=== PATIENT | male | born 1965 | race Caucasian/White ===

== ENCOUNTER 2023-02-23 15:22 | Inpatient (IN) | payer OTHER ==
[2023-02-23 16:59] VITALS: BMI 25.0
[2023-02-23] MEDS ORDERED: POLYETHYLENE GLYCOL (HEALTHYLAX) 3350 17 GM PACKET PO PRN (18:04)
[2023-02-23] MEDS ORDERED: ACETAMINOPHEN 325 MG TABLET (FP) PO PRN (18:04)
[2023-02-23] MEDS ORDERED: LOPERAMIDE HCL 2 MG CAPSULE PO PRN (18:04)
[2023-02-23] MEDS ORDERED: IBUPROFEN 600 MG TABLET (FP) PO PRN (18:04)
[2023-02-23] MEDS ORDERED: hydrOXYzine PAMOATE 25 MG CAPSULE (FP) PO PRN (18:04)
[2023-02-23] MEDS ORDERED: MAGNESIUM HYDROX 2400MG/30ML ORAL SUSPENSION 30 ML CUP PO PRN (18:04)
[2023-02-23] MEDS ORDERED: IBUPROFEN 400 MG TABLET (FP) PO PRN (18:04)
[2023-02-23] MEDS ORDERED: BENZOCAINE/MENTHOL (CHLORASEPTIC ) LOZENGE MM PRN (18:04)
[2023-02-23] MEDS ORDERED: guaiFENesin 600 MG TABLET.ER (FP) PO PRN (18:04)
[2023-02-23] MEDS ORDERED: BENZONATATE 200 MG CAPSULE PO PRN (18:04)
[2023-02-23] MEDS ORDERED: TUBERCULIN PPD 5 TU/0.1ML SYRINGE (IN PATIENT USE ONLY) ID ONE (20:15)
[2023-02-23] MEDS: MELATONIN 5 MG TABLETS PO SCH (21:49)
[2023-02-23] MEDS: THIAMINE HCL 100 MG TABLET (FP) PO SCH (21:49)
[2023-02-23] MEDS ORDERED: TUBERCULIN PPD 5 TU/0.1ML VIAL ID ONE (21:51)
[2023-02-23] MEDS: LIDOCAINE PATCH REMOVAL MC SCH (21:52)
[2023-02-24] MEDS: PRENATAL VITAMINS W/ FOLIC ACID TABLET (FP) PO SCH (10:23)
[2023-02-24] MEDS: LIDOCAINE 5% TOPICAL PATCH TP SCH (10:23)
[2023-02-24] MEDS: MELATONIN 5 MG TABLETS PO SCH (22:06)
[2023-02-24] MEDS: THIAMINE HCL 100 MG TABLET (FP) PO SCH (22:06)
[2023-02-24] MEDS: ARIPiprazole 10 MG TABLET PO SCH (22:06)
[2023-02-24] MEDS: LIDOCAINE PATCH REMOVAL MC SCH (22:07)
[2023-02-25] MEDS: LIDOCAINE 5% TOPICAL PATCH TP SCH (10:48)
[2023-02-25] MEDS: PRENATAL VITAMINS W/ FOLIC ACID TABLET (FP) PO SCH (10:48)
[2023-02-25 12:23] LABS: HEMATOCRIT 39.5 % (35.4-49); HEMOGLOBIN 13.2 GM/dL (11.7-16.9); MCH 29.8 pg (25.7-33.7); MCHC 33.5 g/dl (32.0-35.9); MEAN CELL VOLUME 89.2 fl (80-96); MEAN PLT VOLUME 9.2 fl (7.5-11.1); PLATELET COUNT 208 10^3/uL (134-434); RBC 4.43 M/mm3 (4.00-5.60); RDW 13.4 % (11.9-15.9); WHITE BLOOD COUNT 5.7 K/mm3 (4.0-10.0)
[2023-02-25 12:32] LABS: CALCIUM 8.8 mg/dL (8.5-10.1)
[2023-02-25 12:33] LABS: BLOOD UREA NITROGEN 12.4 mg/dL (7-18)
[2023-02-25 12:35] LABS: CREATININE 0.9 mg/dL (0.55-1.3)
[2023-02-25 12:37] LABS: BILIRUBIN,TOTAL 0.3 mg/dL (0.2-1); TOT PROT 6.2 g/dl (6.4-8.2)
[2023-02-25] MEDS: ARIPiprazole 10 MG TABLET PO SCH (22:06)
[2023-02-25] MEDS: MELATONIN 5 MG TABLETS PO SCH (22:06)
[2023-02-25] MEDS: THIAMINE HCL 100 MG TABLET (FP) PO SCH (22:06)
[2023-02-25] MEDS: LIDOCAINE PATCH REMOVAL MC SCH (22:06)
[2023-02-26] MEDS: PRENATAL VITAMINS W/ FOLIC ACID TABLET (FP) PO SCH (09:48)
[2023-02-26] MEDS: LIDOCAINE 5% TOPICAL PATCH TP SCH (09:48)
[2023-02-26] MEDS: ARIPiprazole 10 MG TABLET PO SCH (21:11)
[2023-02-26] MEDS: THIAMINE HCL 100 MG TABLET (FP) PO SCH (21:11)
[2023-02-26] MEDS: MELATONIN 5 MG TABLETS PO SCH (21:12)
[2023-02-26] MEDS: LIDOCAINE PATCH REMOVAL MC SCH (21:12)
[2023-02-27] MEDS: PRENATAL VITAMINS W/ FOLIC ACID TABLET (FP) PO SCH (10:15)
[2023-02-27] MEDS: LIDOCAINE 5% TOPICAL PATCH TP SCH (10:15)
[2023-02-27] MEDS: THIAMINE HCL 100 MG TABLET (FP) PO SCH (21:36)
[2023-02-27] MEDS: ARIPiprazole 10 MG TABLET PO SCH (21:36)
[2023-02-27] MEDS: MELATONIN 5 MG TABLETS PO SCH (21:37)
[2023-02-27] MEDS: LIDOCAINE PATCH REMOVAL MC SCH (21:37)
[2023-02-28] MEDS: LIDOCAINE 5% TOPICAL PATCH TP SCH (10:15)
[2023-02-28] MEDS: PRENATAL VITAMINS W/ FOLIC ACID TABLET (FP) PO SCH (10:15)
[2023-02-28] MEDS: THIAMINE HCL 100 MG TABLET (FP) PO SCH (21:26)
[2023-02-28] MEDS: MELATONIN 5 MG TABLETS PO SCH (21:27)
[2023-02-28] MEDS: ARIPiprazole 10 MG TABLET PO SCH (21:27)
[2023-02-28] MEDS: LIDOCAINE PATCH REMOVAL MC SCH (21:27)
[2023-03-01] MEDS: PRENATAL VITAMINS W/ FOLIC ACID TABLET (FP) PO SCH (09:36)
[2023-03-01] MEDS: LIDOCAINE 5% TOPICAL PATCH TP SCH (09:36)
[2023-03-01] MEDS: MAG HYDROX/AL HYDROX/SIMETH 30 ML UNIT-DOSE CUP PO PRN (19:04)
[2023-03-01] MEDS: THIAMINE HCL 100 MG TABLET (FP) PO SCH (21:24)
[2023-03-01] MEDS: LIDOCAINE PATCH REMOVAL MC SCH (21:25)
[2023-03-01] MEDS: MELATONIN 5 MG TABLETS PO SCH (21:25)
[2023-03-01] MEDS: ARIPiprazole 10 MG TABLET PO SCH (21:25)
[2023-03-02] MEDS: LIDOCAINE 5% TOPICAL PATCH TP SCH (10:30)
[2023-03-02] MEDS: PRENATAL VITAMINS W/ FOLIC ACID TABLET (FP) PO SCH (10:31)
[2023-03-02] MEDS: INSULIN SLIDING SCALE (NOVOLOG) 1 VIAL SQ SCH (17:21)
[2023-03-02] MEDS: THIAMINE HCL 100 MG TABLET (FP) PO SCH (21:34)
[2023-03-02] MEDS: MELATONIN 5 MG TABLETS PO SCH (21:34)
[2023-03-02] MEDS: ARIPiprazole 10 MG TABLET PO SCH (21:34)
[2023-03-02] MEDS: LIDOCAINE PATCH REMOVAL MC SCH (21:35)
[2023-03-02] MEDS: MAG HYDROX/AL HYDROX/SIMETH 30 ML UNIT-DOSE CUP PO PRN (21:52)
[2023-03-03] MEDS: INSULIN SLIDING SCALE (NOVOLOG) 1 VIAL SQ SCH ×2 (06:33→16:41)
[2023-03-03] MEDS: MAG HYDROX/AL HYDROX/SIMETH 30 ML UNIT-DOSE CUP PO PRN ×2 (09:39→16:49)
[2023-03-03] MEDS: LIDOCAINE 5% TOPICAL PATCH TP SCH (09:39)
[2023-03-03] MEDS: PRENATAL VITAMINS W/ FOLIC ACID TABLET (FP) PO SCH (09:39)
[2023-03-03] MEDS: THIAMINE HCL 100 MG TABLET (FP) PO SCH (21:23)
[2023-03-03] MEDS: LIDOCAINE PATCH REMOVAL MC SCH (21:24)
[2023-03-03] MEDS: ARIPiprazole 10 MG TABLET PO SCH (21:24)
[2023-03-03] MEDS: MELATONIN 5 MG TABLETS PO SCH (21:24)
[2023-03-04] MEDS: INSULIN SLIDING SCALE (NOVOLOG) 1 VIAL SQ SCH ×2 (06:48→16:19)
[2023-03-04] MEDS: PRENATAL VITAMINS W/ FOLIC ACID TABLET (FP) PO SCH (10:12)
[2023-03-04] MEDS: LIDOCAINE 5% TOPICAL PATCH TP SCH (10:12)
[2023-03-04] MEDS: ARIPiprazole 10 MG TABLET PO SCH (21:07)
[2023-03-04] MEDS: THIAMINE HCL 100 MG TABLET (FP) PO SCH (21:07)
[2023-03-04] MEDS: MELATONIN 5 MG TABLETS PO SCH (21:07)
[2023-03-04] MEDS: LIDOCAINE PATCH REMOVAL MC SCH (21:07)
[2023-03-05] MEDS: INSULIN SLIDING SCALE (NOVOLOG) 1 VIAL SQ SCH ×2 (06:29→17:11)
[2023-03-05] MEDS: LIDOCAINE 5% TOPICAL PATCH TP SCH (09:43)
[2023-03-05] MEDS: PRENATAL VITAMINS W/ FOLIC ACID TABLET (FP) PO SCH (09:43)
[2023-03-05] MEDS: MELATONIN 5 MG TABLETS PO SCH (21:21)
[2023-03-05] MEDS: ARIPiprazole 10 MG TABLET PO SCH (21:21)
[2023-03-05] MEDS: THIAMINE HCL 100 MG TABLET (FP) PO SCH (21:21)
[2023-03-05] MEDS: LIDOCAINE PATCH REMOVAL MC SCH (21:22)
[2023-03-05] MEDS: MAG HYDROX/AL HYDROX/SIMETH 30 ML UNIT-DOSE CUP PO PRN (22:16)
[2023-03-06] MEDS: INSULIN SLIDING SCALE (NOVOLOG) 1 VIAL SQ SCH ×2 (05:59→16:39)
[2023-03-06] MEDS: LIDOCAINE 5% TOPICAL PATCH TP SCH (10:18)
[2023-03-06] MEDS: PRENATAL VITAMINS W/ FOLIC ACID TABLET (FP) PO SCH (10:18)
[2023-03-06] MEDS: THIAMINE HCL 100 MG TABLET (FP) PO SCH (21:08)
[2023-03-06] MEDS: ARIPiprazole 10 MG TABLET PO SCH (21:08)
[2023-03-06] MEDS: LIDOCAINE PATCH REMOVAL MC SCH (21:09)
[2023-03-06] MEDS: MELATONIN 5 MG TABLETS PO SCH (21:09)
[2023-03-07] MEDS: INSULIN SLIDING SCALE (NOVOLOG) 1 VIAL SQ SCH (06:40)
[2023-03-07 08:08] VITALS: BP 122/82; PULSE 56; RESP 18; TEMP 97.1
[2023-03-07] MEDS: LIDOCAINE 5% TOPICAL PATCH TP SCH (09:38)
[2023-03-07] MEDS: PRENATAL VITAMINS W/ FOLIC ACID TABLET (FP) PO SCH (09:38)
== END 2023-03-07 13:38 | disposition home or self-care (01) | DRG 895 ==
LOC: YASAS 15:22 → Y3W 19:57
PROVIDERS: ADMIT Allergy & Immunology; ATTEND Psychiatry & Neurology Pain Medicine
PROC: HZ42ZZZ Group Counseling for Substance Abuse Treatment, Cognitive-Behavioral (ICD-10-PCS; principal; 2023-02-23)
DX: F14.20 Cocaine dependence, uncomplicated (principal); F25.9 Schizoaffective disorder, unspecified; Z59.02 Unsheltered homelessness
CPT/HCPCS: 36415; 80053; 82962; 83036; 85027; 86780; 87811; C9803-CS; U0003; U0005

== ENCOUNTER 2023-05-23 11:14 | Inpatient (IN) | payer OTHER ==
[2023-05-23 11:37] VITALS: BMI 20.8
[2023-05-23] MEDS ORDERED: ACETAMINOPHEN 325 MG TABLET (FP) PO PRN (12:05)
[2023-05-23] MEDS ORDERED: COLLOIDAL OATMEAL 1 BAR EACH TP PRN (12:05)
[2023-05-23] MEDS ORDERED: MAG HYDROX/AL HYDROX/SIMETH 30 ML UNIT-DOSE CUP PO PRN (12:05)
[2023-05-23] MEDS ORDERED: LOPERAMIDE HCL 2 MG CAPSULE PO PRN (12:05)
[2023-05-23] MEDS ORDERED: AMMONIUM LACTATE 12% LOTION 225 GM BOTTLE TP PRN (12:05)
[2023-05-23] MEDS ORDERED: POLYETHYLENE GLYCOL (HEALTHYLAX) 3350 17 GM PACKET PO PRN (12:05)
[2023-05-23] MEDS ORDERED: IBUPROFEN 600 MG TABLET (FP) PO PRN (12:05)
[2023-05-23] MEDS ORDERED: IBUPROFEN 400 MG TABLET (FP) PO PRN (12:05)
[2023-05-23] MEDS ORDERED: BENZOCAINE/MENTHOL (CHLORASEPTIC ) LOZENGE MM PRN (12:05)
[2023-05-23] MEDS ORDERED: BENZONATATE 200 MG CAPSULE PO PRN (12:05)
[2023-05-23] MEDS ORDERED: P-EPHED 60MG/TRIPROLIDI 2.5MG TABLET PO PRN (12:05)
[2023-05-23] MEDS ORDERED: guaiFENesin 600 MG TABLET.ER (FP) PO PRN (12:05)
[2023-05-23] MEDS ORDERED: MAGNESIUM HYDROX 2400MG/30ML ORAL SUSPENSION 30 ML CUP PO PRN (12:05)
[2023-05-23] MEDS: THIAMINE HCL 100 MG TABLET (FP) PO SCH (21:07)
[2023-05-23] MEDS: MELATONIN 5 MG TABLETS PO SCH (21:08)
[2023-05-24] MEDS: PRENATAL VITAMINS W/ FOLIC ACID TABLET (FP) PO SCH (09:54)
[2023-05-24 12:30] LABS: HEMATOCRIT 44.9 % (35.4-49); MCH 28.8 pg (25.7-33.7); MCHC 31.1 g/dl (32.0-35.9); MEAN CELL VOLUME 92.4 fl (80-96); MEAN PLT VOLUME 9.9 fl (7.5-11.1); PLATELET COUNT 163 10^3/uL (134-434); RBC 4.86 M/mm3 (4.00-5.60); RDW 13.9 % (11.9-15.9); WHITE BLOOD COUNT 6.7 K/mm3 (4.0-10.0)
[2023-05-24 12:33] LABS: URINE APPEARANCE CLEAR; URINE BILIRUBIN NEGATIVE (NEGATIVE); URINE COLOR YELLOW; URINE GLUCOSE (UA) NEGATIVE (NEGATIVE); URINE KETONE NEGATIVE (NEGATIVE); URINE LEUK ESTERASE NEGATIVE (NEGATIVE); URINE NITRITE NEGATIVE (NEGATIVE); URINE PROTEIN NEGATIVE (NEGATIVE); URINE UROBILINOGEN 0.2 mg/dL (0.2-1.0)
[2023-05-24] MEDS: ARIPiprazole 10 MG TABLET PO SCH (12:45)
[2023-05-24 12:57] LABS: ALBUMIN 3.4 g/dl (3.4-5.0); CALCIUM 9.4 mg/dL (8.5-10.1)
[2023-05-24 13:01] LABS: CREATININE 0.8 mg/dL (0.55-1.3)
[2023-05-24 13:02] LABS: TOT PROT 6.4 g/dl (6.4-8.2)
[2023-05-24 13:03] LABS: BILIRUBIN,TOTAL 0.2 mg/dL (0.2-1)
[2023-05-24] MEDS: MELATONIN 5 MG TABLETS PO SCH (21:13)
[2023-05-24] MEDS: THIAMINE HCL 100 MG TABLET (FP) PO SCH (21:13)
[2023-05-25] MEDS: PRENATAL VITAMINS W/ FOLIC ACID TABLET (FP) PO SCH (09:52)
[2023-05-25] MEDS: ARIPiprazole 10 MG TABLET PO SCH (09:52)
[2023-05-25] MEDS: MELATONIN 5 MG TABLETS PO SCH (22:11)
[2023-05-25] MEDS: THIAMINE HCL 100 MG TABLET (FP) PO SCH (22:11)
[2023-05-26] MEDS: PRENATAL VITAMINS W/ FOLIC ACID TABLET (FP) PO SCH (09:35)
[2023-05-26] MEDS: ARIPiprazole 10 MG TABLET PO SCH (09:35)
[2023-05-26] MEDS: THIAMINE HCL 100 MG TABLET (FP) PO SCH (21:10)
[2023-05-26] MEDS: MELATONIN 5 MG TABLETS PO SCH (21:11)
[2023-05-27 09:14] VITALS: RESP 18
[2023-05-27] MEDS: ARIPiprazole 10 MG TABLET PO SCH (10:38)
[2023-05-27] MEDS: PRENATAL VITAMINS W/ FOLIC ACID TABLET (FP) PO SCH (10:38)
[2023-05-27] MEDS: MELATONIN 5 MG TABLETS PO SCH (21:34)
[2023-05-27] MEDS: THIAMINE HCL 100 MG TABLET (FP) PO SCH (21:34)
[2023-05-28] MEDS: PRENATAL VITAMINS W/ FOLIC ACID TABLET (FP) PO SCH (09:33)
[2023-05-28] MEDS: ARIPiprazole 10 MG TABLET PO SCH (09:33)
[2023-05-28] MEDS: MELATONIN 5 MG TABLETS PO SCH (21:48)
[2023-05-28] MEDS: THIAMINE HCL 100 MG TABLET (FP) PO SCH (21:48)
[2023-05-29 06:40] VITALS: TEMP 97.8
[2023-05-29] MEDS: PRENATAL VITAMINS W/ FOLIC ACID TABLET (FP) PO SCH (10:12)
[2023-05-29] MEDS: ARIPiprazole 10 MG TABLET PO SCH (10:13)
[2023-05-29 17:55] VITALS: BP 122/76; PULSE 80
== END 2023-05-29 17:40 | disposition left against medical advice (07) | DRG 894 ==
LOC: YASAS 11:14 → Y3W 11:56
PROVIDERS: ADMIT Allergy & Immunology; ATTEND Psychiatry & Neurology Pain Medicine
PROC: HZ42ZZZ Group Counseling for Substance Abuse Treatment, Cognitive-Behavioral (ICD-10-PCS; principal; 2023-05-23)
DX: F14.20 Cocaine dependence, uncomplicated (principal); Z86.59 Personal history of other mental and behavioral disorders; Z56.0 Unemployment, unspecified; Z59.02 Unsheltered homelessness
CPT/HCPCS: 36415; 80053; 81003; 83036; 85027; 86780; 87635; 87811

== ENCOUNTER 2023-06-25 13:28 | Inpatient (IN) | payer OTHER ==
[2023-06-25 15:26] VITALS: BMI 19.1
[2023-06-25] MEDS ORDERED: COLLOIDAL OATMEAL 1 BAR EACH TP PRN (17:38)
[2023-06-25] MEDS ORDERED: LOPERAMIDE HCL 2 MG CAPSULE PO PRN (17:38)
[2023-06-25] MEDS ORDERED: BENZOCAINE/MENTHOL (CHLORASEPTIC ) LOZENGE MM PRN (17:38)
[2023-06-25] MEDS ORDERED: guaiFENesin 600 MG TABLET.ER (FP) PO PRN (17:38)
[2023-06-25] MEDS ORDERED: IBUPROFEN 400 MG TABLET (FP) PO PRN (17:38)
[2023-06-25] MEDS ORDERED: BENZONATATE 200 MG CAPSULE PO PRN (17:38)
[2023-06-25] MEDS ORDERED: MAG HYDROX/AL HYDROX/SIMETH 30 ML UNIT-DOSE CUP PO PRN (17:38)
[2023-06-25] MEDS ORDERED: NALOXONE HCL (KLOXXADO) 8 MG SPRAY NS PRN (17:38)
[2023-06-25] MEDS ORDERED: NALOXONE HCL 0.4 MG/ML VIAL IM PRN (17:38)
[2023-06-25] MEDS ORDERED: POLYETHYLENE GLYCOL (HEALTHYLAX) 3350 17 GM PACKET PO PRN (17:38)
[2023-06-25] MEDS ORDERED: IBUPROFEN 600 MG TABLET (FP) PO PRN (17:38)
[2023-06-25] MEDS ORDERED: AMMONIUM LACTATE 12% LOTION 225 GM BOTTLE TP PRN (17:38)
[2023-06-25] MEDS ORDERED: MAGNESIUM HYDROX 2400MG/30ML ORAL SUSPENSION 30 ML CUP PO PRN (17:38)
[2023-06-25] MEDS ORDERED: hydrOXYzine PAMOATE 25 MG CAPSULE (FP) PO PRN (17:38)
[2023-06-25] MEDS ORDERED: ACETAMINOPHEN 325 MG TABLET (FP) PO PRN (17:38)
[2023-06-25] MEDS: THIAMINE HCL 100 MG TABLET (FP) PO SCH (23:35)
[2023-06-25] MEDS: MELATONIN 5 MG TABLETS PO SCH (23:35)
[2023-06-26 11:26] LABS: POTASSIUM 4.4 mmol/L (3.5-5.1)
[2023-06-26 11:29] LABS: BLOOD UREA NITROGEN 17.2 mg/dL (7-18); CALCIUM 8.5 mg/dL (8.5-10.1)
[2023-06-26 11:33] LABS: BILIRUBIN,TOTAL 0.2 mg/dL (0.2-1); CREATININE 0.8 mg/dL (0.55-1.3); TOT PROT 5.8 g/dl (6.4-8.2)
[2023-06-26 11:34] LABS: HEMOGLOBIN 13.6 GM/dL (11.7-16.9); MCH 29.4 pg (25.7-33.7); MCHC 32.3 g/dl (32.0-35.9); MEAN CELL VOLUME 91.1 fl (80-96); MEAN PLT VOLUME 9.9 fl (7.5-11.1); PLATELET COUNT 172 10^3/uL (134-434); RBC 4.61 M/mm3 (4.00-5.60); RDW 13.7 % (11.9-15.9); WHITE BLOOD COUNT 6.6 K/mm3 (4.0-10.0)
[2023-06-26 11:53] LABS: SYPHILIS W/ RPR CONF NON-REACTIVE (NONREACTIVE)
[2023-06-26] MEDS: PRENATAL VITAMINS W/ FOLIC ACID TABLET (FP) PO SCH (11:56)
[2023-06-26] MEDS: ARIPiprazole 10 MG TABLET PO SCH (11:56)
[2023-06-26 15:35] LABS: PH,URINE 5.5 (5.0-8.0); URINE APPEARANCE CLEAR; URINE BILIRUBIN NEGATIVE (NEGATIVE); URINE COLOR YELLOW; URINE GLUCOSE (UA) 2+ (NEGATIVE); URINE KETONE NEGATIVE (NEGATIVE); URINE LEUK ESTERASE NEGATIVE (NEGATIVE); URINE NITRITE NEGATIVE (NEGATIVE); URINE PROTEIN NEGATIVE (NEGATIVE); URINE UROBILINOGEN 0.2 mg/dL (0.2-1.0)
[2023-06-26] MEDS: THIAMINE HCL 100 MG TABLET (FP) PO SCH (21:04)
[2023-06-26] MEDS: MELATONIN 5 MG TABLETS PO SCH (21:04)
[2023-06-27] MEDS ORDERED: MIDAZOLAM HCL 2 MG/2 ML SINGLE DOSE VIAL ONE (08:54)
[2023-06-27] MEDS: PRENATAL VITAMINS W/ FOLIC ACID TABLET (FP) PO SCH (09:36)
[2023-06-27] MEDS: ARIPiprazole 10 MG TABLET PO SCH (09:36)
[2023-06-27] MEDS: THIAMINE HCL 100 MG TABLET (FP) PO SCH (22:04)
[2023-06-27] MEDS: MELATONIN 5 MG TABLETS PO SCH (22:04)
[2023-06-28] MEDS: ARIPiprazole 10 MG TABLET PO SCH (09:46)
[2023-06-28] MEDS: PRENATAL VITAMINS W/ FOLIC ACID TABLET (FP) PO SCH (09:46)
[2023-06-28] MEDS ORDERED: INSULIN (NOVOLOG) ASPART 100 UNITS/ML 10ML VIAL ONE (16:31)
[2023-06-28] MEDS: INSULIN SLIDING SCALE (NOVOLOG) 1 VIAL SQ SCH (16:52)
[2023-06-28] MEDS: THIAMINE HCL 100 MG TABLET (FP) PO SCH (21:44)
[2023-06-28] MEDS: MELATONIN 5 MG TABLETS PO SCH (21:44)
[2023-06-29] MEDS: INSULIN SLIDING SCALE (NOVOLOG) 1 VIAL SQ SCH ×2 (07:05→16:44)
[2023-06-29] MEDS: PRENATAL VITAMINS W/ FOLIC ACID TABLET (FP) PO SCH (09:40)
[2023-06-29] MEDS: ARIPiprazole 10 MG TABLET PO SCH (09:40)
[2023-06-29] MEDS ORDERED: INSULIN (NOVOLOG) ASPART 100 UNITS/ML 10ML VIAL ONE (16:35)
[2023-06-30] MEDS: MELATONIN 5 MG TABLETS PO SCH ×2 (00:10→23:05)
[2023-06-30] MEDS: THIAMINE HCL 100 MG TABLET (FP) PO SCH ×2 (00:10→23:05)
[2023-06-30] MEDS: INSULIN SLIDING SCALE (NOVOLOG) 1 VIAL SQ SCH ×2 (07:39→16:31)
[2023-06-30] MEDS: PRENATAL VITAMINS W/ FOLIC ACID TABLET (FP) PO SCH (09:44)
[2023-06-30] MEDS: ARIPiprazole 10 MG TABLET PO SCH (09:44)
[2023-07-01] MEDS: INSULIN SLIDING SCALE (NOVOLOG) 1 VIAL SQ SCH ×2 (06:27→16:49)
[2023-07-01] MEDS: ARIPiprazole 10 MG TABLET PO SCH (09:43)
[2023-07-01] MEDS: PRENATAL VITAMINS W/ FOLIC ACID TABLET (FP) PO SCH (09:43)
[2023-07-01] MEDS: MELATONIN 5 MG TABLETS PO SCH (22:32)
[2023-07-01] MEDS: THIAMINE HCL 100 MG TABLET (FP) PO SCH (22:33)
[2023-07-02] MEDS: INSULIN SLIDING SCALE (NOVOLOG) 1 VIAL SQ SCH ×2 (06:07→17:02)
[2023-07-02] MEDS: PRENATAL VITAMINS W/ FOLIC ACID TABLET (FP) PO SCH (09:48)
[2023-07-02] MEDS: ARIPiprazole 10 MG TABLET PO SCH (09:48)
[2023-07-02] MEDS: THIAMINE HCL 100 MG TABLET (FP) PO SCH (21:05)
[2023-07-02] MEDS: MELATONIN 5 MG TABLETS PO SCH (21:05)
[2023-07-03] MEDS: INSULIN SLIDING SCALE (NOVOLOG) 1 VIAL SQ SCH ×2 (06:13→16:53)
[2023-07-03 06:45] VITALS: RESP 18
[2023-07-03] MEDS: ARIPiprazole 10 MG TABLET PO SCH (09:51)
[2023-07-03] MEDS: PRENATAL VITAMINS W/ FOLIC ACID TABLET (FP) PO SCH (09:51)
[2023-07-03] MEDS: MELATONIN 5 MG TABLETS PO SCH (21:46)
[2023-07-03] MEDS: THIAMINE HCL 100 MG TABLET (FP) PO SCH (21:46)
[2023-07-04] MEDS: INSULIN SLIDING SCALE (NOVOLOG) 1 VIAL SQ SCH ×2 (06:17→16:43)
[2023-07-04] MEDS: PRENATAL VITAMINS W/ FOLIC ACID TABLET (FP) PO SCH (09:57)
[2023-07-04] MEDS: ARIPiprazole 10 MG TABLET PO SCH (09:57)
[2023-07-04] MEDS ORDERED: INSULIN (NOVOLOG) ASPART 100 UNITS/ML 10ML VIAL ONE (16:28)
[2023-07-04] MEDS: MELATONIN 5 MG TABLETS PO SCH (21:49)
[2023-07-04] MEDS: THIAMINE HCL 100 MG TABLET (FP) PO SCH (21:49)
[2023-07-05] MEDS: INSULIN SLIDING SCALE (NOVOLOG) 1 VIAL SQ SCH (06:03)
[2023-07-05 07:06] VITALS: BP 134/82; PULSE 65; TEMP 97.7
[2023-07-05] MEDS: PRENATAL VITAMINS W/ FOLIC ACID TABLET (FP) PO SCH (09:03)
[2023-07-05] MEDS: ARIPiprazole 10 MG TABLET PO SCH (09:03)
== END 2023-07-05 09:23 | disposition home or self-care (01) | DRG 895 ==
LOC: YASAS 13:28 → Y5N 17:42
PROVIDERS: ADMIT Allergy & Immunology; ATTEND Psychiatry & Neurology Pain Medicine
PROC: HZ42ZZZ Group Counseling for Substance Abuse Treatment, Cognitive-Behavioral (ICD-10-PCS; principal; 2023-06-25)
DX: F14.20 Cocaine dependence, uncomplicated (principal); F25.9 Schizoaffective disorder, unspecified; F32.A Depression, unspecified; E11.9 Type 2 diabetes mellitus without complications; I25.10 Atherosclerotic heart disease of native coronary artery without angina pectoris; I25.2 Old myocardial infarction; Z95.5 Presence of coronary angioplasty implant and graft
CPT/HCPCS: 36415; 80053; 81003; 82962; 85027; 86780; 86803; 87635

== ENCOUNTER 2023-12-11 10:15 | Inpatient (IN) | payer OTHER ==
[2023-12-11 10:47] VITALS: BMI 20.2
[2023-12-11] MEDS ORDERED: BISMUTH SUBSALICYLATE 262 MG/15 ML BTL PO PRN (11:15)
[2023-12-11] MEDS ORDERED: MAG HYDROX/AL HYDROX/SIMETH 30 ML UNIT-DOSE CUP PO PRN (11:15)
[2023-12-11] MEDS ORDERED: guaiFENesin 600 MG TABLET.ER (FP) PO PRN (11:15)
[2023-12-11] MEDS ORDERED: METHOCARBAMOL 500 MG TABLET PO PRN (11:15)
[2023-12-11] MEDS ORDERED: NALOXONE HCL 0.4 MG/ML VIAL IM PRN (11:15)
[2023-12-11] MEDS ORDERED: ONDANSETRON *ODT* 4 MG TABLET SL PRN (11:15)
[2023-12-11] MEDS ORDERED: POLYETHYLENE GLYCOL (HEALTHYLAX) 3350 17 GM PACKET PO PRN (11:15)
[2023-12-11] MEDS ORDERED: NALOXONE HCL (KLOXXADO) 8 MG SPRAY NS PRN (11:15)
[2023-12-11] MEDS ORDERED: hydrOXYzine PAMOATE 25 MG CAPSULE (FP) PO PRN (11:15)
[2023-12-11] MEDS ORDERED: IBUPROFEN 600 MG TABLET (FP) PO PRN (11:15)
[2023-12-11] MEDS ORDERED: LOPERAMIDE HCL 2 MG CAPSULE PO PRN (11:15)
[2023-12-11] MEDS ORDERED: BENZOCAINE/MENTHOL (CHLORASEPTIC ) LOZENGE MM PRN (11:15)
[2023-12-11] MEDS ORDERED: DICYCLOMINE HCL 10 MG CAPSULE PO PRN (11:15)
[2023-12-11] MEDS ORDERED: MAGNESIUM HYDROX 2400MG/30ML ORAL SUSPENSION 30 ML CUP PO PRN (11:15)
[2023-12-11] MEDS ORDERED: BENZONATATE 200 MG CAPSULE PO PRN (11:15)
[2023-12-11] MEDS ORDERED: IBUPROFEN 400 MG TABLET (FP) PO PRN (11:15)
[2023-12-11] MEDS ORDERED: ACETAMINOPHEN 325 MG TABLET (FP) PO PRN (11:15)
[2023-12-11] MEDS ORDERED: INSULIN (NOVOLOG) ASPART 100 UNITS/ML 10ML VIAL SQ ONE (12:25)
[2023-12-11] MEDS: INSULIN ASPART SLIDING SCALE (NOVOLOG) 1 VIAL SQ SCH (17:16)
[2023-12-11] MEDS: MELATONIN 5 MG TABLETS PO SCH (22:37)
[2023-12-11] MEDS: THIAMINE HCL 100 MG TABLET (FP) PO SCH (22:37)
[2023-12-12] MEDS: INSULIN ASPART SLIDING SCALE (NOVOLOG) 1 VIAL SQ SCH ×2 (06:15→17:37)
[2023-12-12] MEDS ORDERED: diazePAM 5 MG TABLET PO PRN (10:00)
[2023-12-12] MEDS: diazePAM 5 MG TABLET PO SCH ×3 (10:16→22:53)
[2023-12-12] MEDS: PRENATAL VITAMINS W/ FOLIC ACID TABLET (FP) PO SCH (10:17)
[2023-12-12 11:41] LABS: HEMATOCRIT 41.3 % (35.4-49); HEMOGLOBIN 13.7 GM/dL (11.7-16.9); MCH 29.6 pg (25.7-33.7); MCHC 33.2 g/dl (32.0-35.9); MEAN CELL VOLUME 89.2 fl (80-96); MEAN PLT VOLUME 9.5 fl (7.5-11.1); PLATELET COUNT 277 10^3/uL (134-434); RBC 4.64 M/mm3 (4.00-5.60); RDW 13.5 % (11.9-15.9); WHITE BLOOD COUNT 4.2 K/mm3 (4.0-10.0)
[2023-12-12 11:45] LABS: POTASSIUM 4.4 mmol/L (3.5-5.1)
[2023-12-12 11:51] LABS: CALCIUM 9.1 mg/dL (8.5-10.1)
[2023-12-12 11:52] LABS: ALBUMIN 3.4 g/dl (3.4-5.0); BLOOD UREA NITROGEN 19.3 mg/dL (7-18)
[2023-12-12 11:56] LABS: BILIRUBIN,TOTAL 0.2 mg/dL (0.2-1); TOT PROT 6.7 g/dl (6.4-8.2)
[2023-12-12] MEDS: THIAMINE HCL 100 MG TABLET (FP) PO SCH (22:53)
[2023-12-12] MEDS: MELATONIN 5 MG TABLETS PO SCH (22:53)
[2023-12-13] MEDS: diazePAM 5 MG TABLET PO SCH ×4 (05:48→22:19)
[2023-12-13] MEDS: INSULIN ASPART SLIDING SCALE (NOVOLOG) 1 VIAL SQ SCH ×2 (06:18→17:24)
[2023-12-13] MEDS: ARIPiprazole 10 MG TABLET PO SCH (10:18)
[2023-12-13] MEDS: PRENATAL VITAMINS W/ FOLIC ACID TABLET (FP) PO SCH (10:18)
[2023-12-13] MEDS: THIAMINE HCL 100 MG TABLET (FP) PO SCH (22:19)
[2023-12-13] MEDS: MELATONIN 5 MG TABLETS PO SCH (22:19)
[2023-12-14] MEDS: diazePAM 5 MG TABLET PO SCH ×3 (05:32→22:27)
[2023-12-14] MEDS: INSULIN ASPART SLIDING SCALE (NOVOLOG) 1 VIAL SQ SCH ×2 (06:06→17:11)
[2023-12-14] MEDS ORDERED: INSULIN ASPART SLIDING SCALE (NOVOLOG) 1 VIAL SQ ONE (07:01)
[2023-12-14] MEDS: ARIPiprazole 10 MG TABLET PO SCH (09:08)
[2023-12-14] MEDS: PRENATAL VITAMINS W/ FOLIC ACID TABLET (FP) PO SCH (09:08)
[2023-12-14 20:56] VITALS: RESP 18
[2023-12-14] MEDS: MELATONIN 5 MG TABLETS PO SCH (22:27)
[2023-12-14] MEDS: THIAMINE HCL 100 MG TABLET (FP) PO SCH (22:27)
[2023-12-15] MEDS ORDERED: diazePAM 5 MG TABLET PO SCH (06:00)
[2023-12-15] MEDS: INSULIN ASPART SLIDING SCALE (NOVOLOG) 1 VIAL SQ SCH (07:19)
[2023-12-15] MEDS: PRENATAL VITAMINS W/ FOLIC ACID TABLET (FP) PO SCH (09:25)
[2023-12-15] MEDS: ARIPiprazole 10 MG TABLET PO SCH (09:25)
[2023-12-15 12:59] VITALS: BP 117/80; PULSE 59; TEMP 97.8
[2023-12-16] MEDS ORDERED: diazePAM 5 MG TABLET PO ONE (06:00)
== END 2023-12-15 09:14 | disposition home or self-care (01) | DRG 897 ==
LOC: YASAS 10:15 → Y3N 11:45
PROVIDERS: ADMIT Allergy & Immunology; ATTEND Allergy & Immunology
PROC: HZ2ZZZZ Detoxification Services for Substance Abuse Treatment (ICD-10-PCS; principal; 2023-12-11)
DX: F10.230 Alcohol dependence with withdrawal, uncomplicated (principal); F14.20 Cocaine dependence, uncomplicated; Z59.00 Homelessness unspecified; F25.9 Schizoaffective disorder, unspecified; F31.9 Bipolar disorder, unspecified; E11.9 Type 2 diabetes mellitus without complications; I25.10 Atherosclerotic heart disease of native coronary artery without angina pectoris; I25.2 Old myocardial infarction; Z95.5 Presence of coronary angioplasty implant and graft; Z56.0 Unemployment, unspecified
CPT/HCPCS: 36415; 80053; 80307; 82962; 85027; 86780; 87635; 87811

== ENCOUNTER 2024-02-24 14:40 | Inpatient (IN) | payer OTHER ==
[2024-02-24 15:01] VITALS: BMI 20.7
[2024-02-24] MEDS ORDERED: diazePAM 5 MG TABLET PO PRN (16:57)
[2024-02-24] MEDS ORDERED: IBUPROFEN 600 MG TABLET (FP) PO PRN (16:57)
[2024-02-24] MEDS ORDERED: BENZONATATE 200 MG CAPSULE PO PRN (16:57)
[2024-02-24] MEDS ORDERED: MAGNESIUM HYDROX 2400MG/30ML ORAL SUSPENSION 30 ML CUP PO PRN (16:57)
[2024-02-24] MEDS ORDERED: ONDANSETRON *ODT* 4 MG TABLET SL PRN (16:57)
[2024-02-24] MEDS ORDERED: MAG HYDROX/AL HYDROX/SIMETH 30 ML UNIT-DOSE CUP PO PRN (16:57)
[2024-02-24] MEDS ORDERED: METHOCARBAMOL 500 MG TABLET PO PRN (16:57)
[2024-02-24] MEDS ORDERED: BENZOCAINE/MENTHOL (CHLORASEPTIC ) LOZENGE MM PRN (16:57)
[2024-02-24] MEDS ORDERED: ACETAMINOPHEN 325 MG TABLET (FP) PO PRN (16:57)
[2024-02-24] MEDS ORDERED: DICYCLOMINE HCL 10 MG CAPSULE PO PRN (16:57)
[2024-02-24] MEDS ORDERED: hydrOXYzine PAMOATE 25 MG CAPSULE (FP) PO PRN (16:57)
[2024-02-24] MEDS ORDERED: BISMUTH SUBSALICYLATE 524 MG/30 ML PO PRN (16:57)
[2024-02-24] MEDS ORDERED: POLYETHYLENE GLYCOL (HEALTHYLAX) 3350 17 GM PACKET PO PRN (16:57)
[2024-02-24] MEDS ORDERED: NALOXONE HCL (KLOXXADO) 8 MG SPRAY NS PRN (16:57)
[2024-02-24] MEDS ORDERED: NALOXONE HCL 0.4 MG/ML VIAL IM PRN (16:57)
[2024-02-24] MEDS ORDERED: guaiFENesin 600 MG TABLET.ER (FP) PO PRN (16:57)
[2024-02-24] MEDS ORDERED: LOPERAMIDE HCL 2 MG CAPSULE PO PRN (16:57)
[2024-02-24] MEDS ORDERED: IBUPROFEN 400 MG TABLET (FP) PO PRN (16:57)
[2024-02-24] MEDS: MELATONIN 5 MG TABLETS PO SCH (22:21)
[2024-02-24] MEDS: THIAMINE HCL 100 MG TABLET (FP) PO SCH (22:21)
[2024-02-24] MEDS: diazePAM 5 MG TABLET PO SCH (22:22)
[2024-02-25] MEDS: ARIPiprazole 10 MG TABLET PO SCH (10:09)
[2024-02-25] MEDS: PRENATAL VITAMINS W/ FOLIC ACID TABLET (FP) PO SCH (10:09)
[2024-02-25 12:01] LABS: HEMATOCRIT 40.7 % (35.4-49); HEMOGLOBIN 12.8 GM/dL (11.7-16.9); MCHC 31.5 g/dl (32.0-35.9); MEAN CELL VOLUME 92.3 fl (80-96); MEAN PLT VOLUME 8.8 fl (7.5-11.1); PLATELET COUNT 215 10^3/uL (134-434); RBC 4.41 M/mm3 (4.00-5.60); RDW 14.2 % (11.9-15.9); WHITE BLOOD COUNT 6.3 K/mm3 (4.0-10.0)
[2024-02-25 12:06] LABS: CHLORIDE 110 mmol/L (98-107); SODIUM 142 mmol/L (136-145)
[2024-02-25 12:14] LABS: CALCIUM 8.6 mg/dL (8.5-10.1)
[2024-02-25 12:15] LABS: ALBUMIN 2.9 g/dl (3.4-5.0); ANION GAP 3 mmol/L (4-13); BLOOD UREA NITROGEN 14.2 mg/dL (7-18); CO2 30 mmol/L (21-32); GLUCOSE,RANDOM 176 mg/dL (74-106)
[2024-02-25 12:17] LABS: CREATININE 0.8 mg/dL (0.55-1.3); SGPT/ALT 18 U/L (13-61)
[2024-02-25 12:18] LABS: BILIRUBIN,TOTAL 0.1 mg/dL (0.2-1); SGOT/AST 10 U/L (15-37); TOT PROT 5.6 g/dl (6.4-8.2)
[2024-02-25 12:19] LABS: ALK PHOS 92 U/L (45-117)
[2024-02-26] MEDS: diazePAM 5 MG TABLET PO SCH ×2 (05:25→23:33)
[2024-02-27] MEDS: diazePAM 5 MG TABLET PO SCH (06:29)
[2024-02-28] MEDS: diazePAM 5 MG TABLET PO ONE (06:32)
[2024-02-28 06:56] VITALS: BP 125/77; PULSE 60; RESP 16; TEMP 97.6
== END 2024-02-28 09:23 | disposition home or self-care (01) | DRG 897 ==
LOC: YASAS 14:40 → Y6N 17:45
PROVIDERS: ADMIT Allergy & Immunology; ATTEND Surgery
PROC: HZ2ZZZZ Detoxification Services for Substance Abuse Treatment (ICD-10-PCS; principal; 2024-02-24)
DX: F10.230 Alcohol dependence with withdrawal, uncomplicated (principal); F14.20 Cocaine dependence, uncomplicated; Z59.01 Sheltered homelessness; F31.9 Bipolar disorder, unspecified; F25.9 Schizoaffective disorder, unspecified; E11.9 Type 2 diabetes mellitus without complications; I25.10 Atherosclerotic heart disease of native coronary artery without angina pectoris; I25.2 Old myocardial infarction; Z95.5 Presence of coronary angioplasty implant and graft; Z56.0 Unemployment, unspecified
CPT/HCPCS: 36415; 80053; 80307; 82962; 83036; 85027; 86780; 93005; 93010

== ENCOUNTER 2024-05-24 13:13 | Inpatient (IN) | payer OTHER ==
[2024-05-24 13:57] VITALS: BMI 19.8
[2024-05-24] MEDS ORDERED: BENZONATATE 200 MG CAPSULE PO PRN (15:27)
[2024-05-24] MEDS ORDERED: DICYCLOMINE HCL 10 MG CAPSULE PO PRN (15:27)
[2024-05-24] MEDS ORDERED: hydrOXYzine PAMOATE 25 MG CAPSULE (FP) PO PRN (15:27)
[2024-05-24] MEDS ORDERED: LOPERAMIDE HCL 2 MG CAPSULE PO PRN (15:27)
[2024-05-24] MEDS ORDERED: guaiFENesin 600 MG TABLET.ER (FP) PO PRN (15:27)
[2024-05-24] MEDS ORDERED: ONDANSETRON *ODT* 4 MG TABLET SL PRN (15:27)
[2024-05-24] MEDS ORDERED: ACETAMINOPHEN 325 MG TABLET (FP) PO PRN (15:27)
[2024-05-24] MEDS ORDERED: BISMUTH SUBSALICYLATE 524 MG/30 ML PO PRN (15:27)
[2024-05-24] MEDS ORDERED: chlordiazePOXIDE HCL 25 MG CAPSULE PO PRN (15:28)
[2024-05-24] MEDS ORDERED: chlordiazePOXIDE HCL 25 MG CAPSULE ONE (17:14)
[2024-05-24] MEDS: chlordiazePOXIDE HCL 25 MG CAPSULE PO SCH (17:20)
[2024-05-25] MEDS: PRENATAL VITAMINS W/ FOLIC ACID TABLET (FP) PO SCH (10:43)
[2024-05-25] MEDS: NICOTINE 14 MG/24 HOURS TOPICAL PATCH TD SCH (10:44)
[2024-05-25] MEDS: THIAMINE 100 MG TABLET PO SCH (10:46)
[2024-05-25 11:19] LABS: HEMATOCRIT 44.3 % (35.4-49); HEMOGLOBIN 14.6 GM/dL (11.7-16.9); MCH 29.9 pg (25.7-33.7); MEAN CELL VOLUME 90.7 fl (80-96); MEAN PLT VOLUME 8.5 fl (7.5-11.1); PLATELET COUNT 253 10^3/uL (134-434); RBC 4.89 M/mm3 (4.00-5.60); RDW 14.2 % (11.9-15.9)
[2024-05-25 11:23] LABS: POTASSIUM 4.2 mmol/L (3.5-5.1)
[2024-05-25 11:26] LABS: ALBUMIN 3.3 g/dl (3.4-5.0); BLOOD UREA NITROGEN 12.4 mg/dL (7-18); CALCIUM 8.9 mg/dL (8.5-10.1)
[2024-05-25 11:30] LABS: CREATININE 0.7 mg/dL (0.55-1.3)
[2024-05-25 11:31] LABS: BILIRUBIN,TOTAL 0.2 mg/dL (0.2-1); TOT PROT 6.5 g/dl (6.4-8.2)
[2024-05-26] MEDS: chlordiazePOXIDE HCL 25 MG CAPSULE PO SCH (05:21)
[2024-05-26] MEDS ORDERED: LORazepam 1 MG TABLET PO PRN (13:02)
[2024-05-26] MEDS ORDERED: chlordiazePOXIDE HCL 25 MG CAPSULE PO SCH (17:00)
[2024-05-26] MEDS: LORazepam 1 MG TABLET PO SCH (17:22)
[2024-05-27] MEDS ORDERED: chlordiazePOXIDE HCL 10 MG CAPSULE PO PRN
[2024-05-27] MEDS ORDERED: chlordiazePOXIDE HCL 10 MG CAPSULE PO SCH (05:00)
[2024-05-27] MEDS: LORazepam 0.5 MG TABLET PO SCH (05:49)
[2024-05-28] MEDS ORDERED: chlordiazePOXIDE HCL 10 MG CAPSULE PO SCH (05:00)
[2024-05-28] MEDS: LORazepam 0.5 MG TABLET PO ONE (05:24)
[2024-05-28] MEDS: IBUPROFEN 400 MG TABLET (FP) PO PRN (10:15)
[2024-05-28 13:13] VITALS: BP 122/73; PULSE 74; RESP 16; TEMP 97.8
[2024-05-29] MEDS ORDERED: chlordiazePOXIDE HCL 10 MG CAPSULE PO ONE (05:00)
== END 2024-05-28 13:41 | disposition home or self-care (01) | DRG 897 ==
LOC: YASAS 13:13 → Y6N 16:48
PROVIDERS: ADMIT Allergy & Immunology; ATTEND Surgery
PROC: HZ2ZZZZ Detoxification Services for Substance Abuse Treatment (ICD-10-PCS; principal; 2024-05-24)
DX: F10.230 Alcohol dependence with withdrawal, uncomplicated (principal); F14.20 Cocaine dependence, uncomplicated; Z59.00 Homelessness unspecified; F31.9 Bipolar disorder, unspecified; F25.9 Schizoaffective disorder, unspecified; E11.9 Type 2 diabetes mellitus without complications; I25.10 Atherosclerotic heart disease of native coronary artery without angina pectoris; I25.2 Old myocardial infarction; Z95.5 Presence of coronary angioplasty implant and graft; Z56.0 Unemployment, unspecified
CPT/HCPCS: 36415; 80053; 80305; 85027; 86780; 93005; 93010

== ENCOUNTER 2025-03-25 21:06 | Emergency (ER) | payer OTHER ==
[2025-03-25 21:40] VITALS: BMI 23.6
[2025-03-26 02:03] VITALS: RESP 10
[2025-03-26 03:40] VITALS: TEMP 98.2
[2025-03-26 05:36] VITALS: BP 127/80; PULSE 63
== END 2025-03-26 05:49 | disposition home or self-care (01) ==
LOC: JER 21:06
DX: R11.2 Nausea with vomiting, unspecified (principal); R63.0 Anorexia; T40.3X5A Adverse effect of methadone, initial encounter; R42 Dizziness and giddiness; R53.83 Other fatigue
CPT/HCPCS: 93005; 93010; 99283-25